=== PATIENT | female | born 1955 | race Caucasian/White ===

== ENCOUNTER 2018-10-07 12:30 | Outpatient (CLI) ==
--- NOTE | 2018-10-07 13:35 | DEXA ---
EXAM: BONE DENSITOMETRY HISTORY: Screening for osteoporosis. Disorder of bone density. FINDINGS: Exam of the lumbar spine demonstrated a total bone mineral density of 1.227 g/cm2. T score is 0.4. Age-matched Z score is 0.7. Exam of the hips revealed a total mean bone mineral density of 1.109 g/cm2. Mean hip T score: 0.8 Mean hip age-matched Z score: 1.1 FRAX WHO Fracture Risk Assessment. Ten year probability of fracture (%). Major Osteoporotic Fracture 6.5% Hip Fracture 0.3%. IMPRESSION: 1. Values presented indicate normal bone density of the spine and hips.
--- NOTE | 2018-10-08 08:54 | MAMMO ---
EXAM: Bilateral digital screening mammogram (2-D and 3-D) History: Screening Comparison: Bilateral mammogram 09/18/2017 Findings: MLO and CC views of bilateral breasts demonstrate scattered fibroglandular breast parenchy ma. CAD was reviewed by the radiologist. Tomosynthesis was performed. There are no dominant masses , no suspicious microcalcifications and no architectural distortions Impression: Stable negative mammogram. Recommend followup routine screening mammography in 1 year. BIRADS 1, negative
== END 2018-10-07 12:31 | disposition home or self-care (01) ==
LOC: RAD 12:30
PROVIDERS: ATTEND Family Medicine
DX: Z12.31 Encounter for screening mammogram for malignant neoplasm of breast (principal); M15.0 Primary generalized (osteo)arthritis; M85.9 Disorder of bone density and structure, unspecified